=== PATIENT | male | born 2005 | race African-American/Black ===

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

== ENCOUNTER 2025-07-11 21:48 | Emergency (ER) | payer OTHER, SELFPAY ==
[2025-07-11] MEDS ORDERED: Amoxicillin/Potassium Clav 875 MG TAB ONE (22:11)
[2025-07-11] MEDS ORDERED: Dexamethasone 10 MG/ML VIAL ONE (22:11)
[2025-07-11] MEDS ORDERED: Ibuprofen 200 MG TAB ONE (22:12)
== END 2025-07-11 22:33 | disposition home or self-care (01) ==
LOC: BURERS 21:48
DX: K08.89 Other specified disorders of teeth and supporting structures (principal); F17.290 Nicotine dependence, other tobacco product, uncomplicated; Z55.6 Problems related to health literacy
CPT/HCPCS: 99282; J1100